=== PATIENT | female | born 2000 | race Caucasian/White ===

== ENCOUNTER 2024-10-19 03:48 | Emergency (ER) | payer OTHER, SELFPAY ==
[2024-10-19 03:53] VITALS: BP 141/83; PULSE 83; RESP 16; TEMP 36.7; O2SAT 98; BMI 37.1
--- NOTE | 2024-10-19 04:13 | ED.GENADULT ---
HPI - General Adult General Chief complaint: Extremity Pain/Injury, Upper Stated complaint: left elbow injury Time Seen by Provider: 10/19/24 04:00 Source: patient Mode of arrival: ambulatory Limitations: no limitations History of Present Illness HPI narrative: [age] female presents the emergency department for evaluation of elbow pain. Pain started 8 hours ago after she slipped on the ice. She worked a full shift and says that the pain started radiating down her forearm and also up her biceps area somewhat. She still has full function of the hand, can move the shoulder without difficulty can bend, straighten the elbow and has normal supination and pronation. She did not try taking any Tylenol or ibuprofen. There is a little bit of numbness in the ulnar distribution of the forearm area. No difficulty moving the fingers. 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 No prior musculoskeletal surgeries on the left arm, shoulder, wrist or hand but does have prior chronic rotator cuff strain on the left side. Is not currently enrolled in any physical therapy or treatment for this. Fall was mechanical, denies any syncope or medical symptoms preceding. No other areas of injury. Landed on bent the left elbow. Pain is at the medial epicondyle area. No bruising, broken skin or swelling. Related Data Home Medications ?Medication ?Instructions ?Recorded ?Confirmed No Known Home Medications 09/08/24 10/19/24 Allergies Allergy/AdvReac Type Severity Reaction Status Date / Time hydromorphone AdvReac Severe Vomiting Verified 10/19/24 03:55 [facility] Social History Smoking Status: Never smoker Non-prescribed substance use: denies use Exam Const: Vital Signs, click to edit/add: Vital Signs - 24 hr 10/19/24 03:53 Temperature 98.1 F Pulse Rate [Pulse Oximeter] 83 Respiratory Rate 16 Blood Pressure [Ri ght Upper Arm] 141/83 H Pulse Oximetry 98 Oxygen Delivery Me thod Room Air Documenting provider has reviewed patient's vital signs: yes Common normals: no apparent distress and alert General appearance: cooperative, comfortable and well kempt HENMT: Common normals: normocephalic Head and scalp: normocephalic Eye: Common normals: conjunctivae normal General eye: normal appearance of both eyes Conjunctiva: conjunctiva(e) normal Neck & C-Spine: General: normal visual inspection Resp: Common normals: normal respiratory effort Effort & inspection: able to speak in complete sentences Cardio: Common normals: peripheral pulses 2+ throughout Peripheral pulses: pulses 2+ throughout Extremity: Other: Left elbow has some mild tenderness over the medial epicondyle but no swelling, bruising, deformity or broken skin. No tenderness over the olecranon, lateral epicondyle, radial head or other areas of the elbow. She has complete full normal range of motion with no limitations. The wrist with normal range of motion, no deformity, no point bony tenderness. 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 Shoulder with normal range of motion, no weakness appreciated on the rotator cuff. No tenderness to palpation over the biceps origin but some very mild tenderness over the insertion at the elbow but certainly no weakness. Right wrist and hand appear grossly normal. Neuro: Sensorium/orientation: alert Speech: speech normal Motor exam: no movement abnormalities noted Psych: Common normals: speech normal Appearance: well kempt Activity/motor behavior: appropriate eye contact Speech: normal speech Mood and affect: euthymic mood Insight: insight good Judgement: judgment good Skin: Common normals: no rashes or lesions noted General skin exam: no rashes or lesions noted Course Course ED Course: 24-year-old female presenting with mild elbow sprain post fall. Offered x-ray but let patient know this since there is no significant tenderness over the radial head or other high yield areas, it is unlikely to change our management. She is in agreement. No signs of major injury in the wrist, shoulder or hand. Discussed anti-inflammatory medication. Prescription for Toradol given. Also counseled on [id number] Tylenol. Discussed a work note, she states that she does not need this. I would recommend [id number] exercises and avoid sling or splint to the elbow, rationale discussed. Primary care follow-up if not improving in 10-14 days. Written instructions provided. She verbalizes understanding and agreement. Vital Signs Vital signs: Initial Vital Signs Temperature 98.1 F 10/19/24 03:53 Temperature Source Temporal Artery Scan 10/19/24 03:53 Pulse Rate 83 10/19/24 03:53 Respiratory Rate 16 10/19/24 03:53 Blood Pressure 141/83 H 10/19/24 03:53 Blood Pressure Mean 102 10/19/24 03:53 Blood Pressure Position Sitting 10/19/24 03:53 Pulse Oximetry 98 10/19/24 03:53 Oxygen Delivery Method Room Air 10/19/24 03:53 Vital Signs Temperature 98.1 F 10/19/24 03:53 Pulse Rate 83 10/19/24 03:53 Respiratory Rate 16 10/19/24 03:53 Blood Pressure 141/83 H 10/19/24 03:53 Pulse Oximetry 98 10/19/24 03:53 Oxygen Delivery Method Room Air 10/19/24 03:53 Temperature 98.1 F 10/19/24 03:53 Pulse Rate 83 10/19/24 03:53 Respiratory Rate 16 10/19/24 03:53 Blood Pressure 141/83 H 10/19/24 03:53 Pulse Oximetry 98 10/19/24 03:53 Oxygen Delivery Method Room Air 10/19/24 03:53 Discharge Plan Discharge Clinical Impression: Elbow sprain Patient Disposition: Home, Self-Care Condition: Stable Instructions: Elbow Sprain (ED) Additional Instructions: As we discussed, your exam is consistent with an elbow sprain. There could be a tiny fracture but it is not affecting the overall structure of the elbow. We both agree that x-ray will not change our management. It is important not to brace or sling the elbow for these types of injuries. It is better to keep full range of motion. As we discussed I want you fully extending the arm at least every few hours while you are awake to keep the elbow from getting too stiff and rotating the hand back in forth with a flexed arm in that supination/pronation movement that was shown. He do have signs of some mild irritation of the ulnar nerve and bicep tendon that coursed through that area but no signs of a tear or major nerve injury. This should improve in about 3-5 days. If things are still very bothersome at the 2 week carmelo, I would recommend primary care follow-up appointment and referral to physical therapy. The shoulder does not show signs of a tear or complication but there are signs of some chronic inflammation. This will likely be slightly worse than usual from the fall but should improve gradually over the next couple of weeks. I would start doing my home exercise plan that you have been previously recommended for this after a couple days rest. I have given her prescription for Toradol, a common anti-inflammatory pain medication. Take 1 right away and then continue repeating every 6 hours as needed. You may also use Tylenol 1000 mg every 6 hours. You may apply ice or heat as needed. Neither tend to be overly helpful for this type of injury. You may perform all typical duties and activities at this time. Activity Level: No Restrictions Discharge Diet: Regular Prescriptions: No Action No Known Home Medications Follow Up/Referrals: Provider,Not a Local [Primary Care Provider] - Stand Alone Forms: [employer] Interactive Info Instructions
--- OUTSIDE RECORDS SUMMARY | 2024-10-19 04:18 | XMS_ITS | Clinical Summary ---
Author Organization [facility] Address [place], [place] [address] Care Team Providers Care Assembler Lay Ups Name Role Phone Kayla Diaz Primary Care Provider Allergies No known active allergies Medications Wegovy 0.25 mg/0.5 mL penIndications:M orbid obesity with BMI of 40.0-44.9, adult (HC) ADMINISTER 0.25MG(===0.5 ML) UNDER THE SKIN 1 TIME WEEKLY 2 mL 3 Active sertraline (ZOLOFT) 50 mg tabletIndication s:Anxiety,Mood swings Take 1 Tablet (50 mg) by mouth every morning. 90 Tablet 1 3 Active rizatriptan (MAXALT) 10 mg tabletIndication s:Other migraine without status migrainosus, not intractable Take 1 Tablet (10 mg) by mouth every 2 hours if needed for Migraine. Give at minimum 2hrs apart. Max Dose: 30mg per 24hrs. 12 Tablet 4 Active naproxen (NAPROSYN) 375 mg tabletIndication s:Other migraine without status migrainosus, not intractable Take 1 Tablet (375 mg) by mouth every 12 hours if needed for Headache. 30 Tablet 4 Active Active Problems Problem Noted Date Diagnosed Date Pneumonia, organism unspecified(486) 08/27/2010 Immunizations Name Administration Dates Next Due DTaP 02/21/2005, 1,2000,05/16,2000 HIB HbOC (HibTITER) 2000,2000 HIB-HepB (Comvax) 04/23/2001,2000 Hepatitis B (Peds) 2000 Inactivated Polio Vaccine 02/21/2005,,04/23/2001,07/28,2000 MENINGOCOCCAL VACCINE 2 VIAL 2MO-55YO (MENVEO) 09/15/2017 MMR 02/21/2005,02/17/2001 Pneumococcal conj 7-Valent (Prevnar 7) 7 Tdap 03/04/2012 Varicella Vaccine 02/17/2007,02/17/2001 Social History Tobacco Use Types Packs/Day Years Used Date Smoking Tobacco: Never Smokeless Tobacco: Never Tobacco Cessation:Counseling Given: Yes Alcohol Use Standard Drinks/Week Comments Yes 0 (1 standard drink = 0.6 oz pur e alcohol) Occ PHQ-2 Answer Date Recorded PHQ-2 TOTAL SCORE 2 07/03/2023 Social Connections Answer Date Recorded Do you often feel lonely or isolated from those around you? 0 07/02/2024 Financial Resource Strain Answer Date R ecorded Difficulty of Paying Living Expenses 3 07/02/2024 Difficulty of Paying Living Expenses Not on file 07/02/2024 Food Insecurity Answer Date Recorded Do you worry your food will run out before you are able to buy more? 1 07/02/2024 Transportation Needs Answer Date Record ed Does lack of transportation keep you from medica l appointments? 1 07/02/2024 Does lack of transportation keep you from work, meetings or getting things that you need? 1 07/02/2024 Housing Stability Answer Date Recorded What is your housing situation today? 1 07/02/2024 Comments No Sex and Gender Information Value Date Recorded Sex Assigned at Female 04/18/2021 3:14 AM CDT Legal Sex Female 5:41 AM PASSENGER CONDUCTOR Gender Identity Female 04/18/2021 3:14 AM CDT Sexual Orientation Bisexual 04/18/2021 3: 14 AM CDT Occupation Industry Job Start Date Job End Date student Not on file Not on file Not on file Obstetrics History Last Filed Vital Signs Vital Sign Reading Time Taken Comments Blood Pressure 106/70 07/02/2024 2:43 PM CDT Pulse 50 07/02/2024 2:43 PM CDT Temperature 36.8 C (98.3 F) 09/15/2017 3:18 PM PASSENGER CONDUCTOR Respiratory Rate - - Oxygen Saturation 99% 07/02/2024 2:43 PM CDT Inhaled Oxygen Concentration - - Weight 107 kg (236 lb) 07/02/2024 2:43 PM CDT Height 165.1 cm (5' 5) 04/03/2023 3:13 PM CDT Body Mass Index 39.27 04/03/2023 3:13 PM CDT Plan of Treatment Health Maintenance Due Date Last Done Comments HPV series for age 9-26 (2 - 2-dose series) 09/03/2012 03/04/2012 (Declined) HIV for age 15-65 01/21/2015 Chlamydia for age 16-24 2016 Hepatitis C screening for age 18-79 01/21/2018 Tetanus booster 03/04/2022 03/04/2012 BMI (ht and wt on same day) for age 18+ 04/03/2024 04/03/2023, 01/10/2023, 02/13/2022, Additional history exists Depression screening for age 12+ 07/03/2024 07/03/2023, 04/05/2023, 04/03/2023, Additional history exists COVID-19 vaccine series ( season) 2024 Influenza for age 9-49 07/11/2024 Pap test for age 21-65 08/22/2024 08/22/2021 Pneumococcal series for age 6-64 Aged Out 02/17/2007 No longer eligible based on patient's age to complete this topic Tdap Completed 03/04/2012 Procedures Procedure Name Priority Date/Time Associated Diagnosis Comments 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 Received: 08/22/2021 1329 Clinic First Screen: Andie Muniz Specimen: DECK AND HULL ASSEMBLER ThinPrep Vial Screening, Cervical 09/06/2021 7:45 PM CDT [facility] [employer] [facility] INTERPRETATION/ RESULT NEGATIVE FOR INTRAEPITHELIAL LESION OR MALIGNANCY (NIL) (none) 09/06/2021 7:45 PM CDT [facility] IMEN ADEQUACY Satisfactory for evaluation Endocervical component present 09/06/2021 7:45 PM CDT [facility] [employer] [facility] HPV REQUEST HPV if ASCUS 09/06/2021 7:45 PM CDT [facility] [employer] [facility] Date of LMP 08/14/21 09/06/2021 7:45 PM CDT [facility] Last Pap Date 1st pap 09/06/2021 7:45 PM CDT [facility] Last Pap Result First Pap/Unknown 7:45 PM CDT [facility] Abnormal Pap or [place] Bx in last 5 years No 09/06/2021 7:45 PM CDT [facility] Menstrual Status Regular Periods 09/06/2021 7:45 PM CDT [facility] [place] Bx Done Today No 09/06/2021 7:45 PM CDT [facility] Additional Information None given 09/06/2021 7:45 PM CDT [facility] Comment: Cytology is screened at [facility] - [address], [place] [address] and [facility] - [address] [place] [address] and [facility] - [address] [place] [address] Interpreted at [facility] - [address], [place] [address] Automated Review Successful 09/06/2021 7:45 PM CDT [facility] Comment:Specimen processed s uccessfully by automated lead sewage plant operator device, ThinPrep Imaging System, [employer] Note The pap test is a screening technique, not a diagnostic procedure. It is used primarily to screen for squamous cancers and precursor lesions. Published studies have shown that it is subject to both false negative and false positive results. The pap test should not be used as the sole means to diagnose or exclude pre-malignant and malignant lesions. 09/06/2021 7:45 PM CDT [facility] Other (Cervical) Non-Blood / Unknown 08/22/2021 12:07 PM CDT 08/22/2021 1:29 PM CDT us Kayla MALDONADO PATHOLOGY/CYTOLOGY Kylah rodríguez Result [facility] [address] [place] [address], [place] from Last 3 Months or Most Recently Relevant to Health Maintenance Insurance Care Teams Assembler Lay Ups Relationship Specialty Start Date End Date Kayla Diaz PA [address] [place] [address] PCP - General Physician [employer] 11/12/21
== END 2024-10-19 04:25 | disposition home or self-care (01) ==
LOC: ED 04:16
PROVIDERS: Emergency Provider Family Medicine; PCP Physician Assistant Medical
DX: S53.402A Unspecified sprain of left elbow, initial encounter (principal)
CPT/HCPCS: 99282; 99283

== ENCOUNTER 2024-11-25 22:41 | Emergency (ER) | payer OTHER, SELFPAY ==
--- OUTSIDE RECORDS SUMMARY | 2024-11-25 22:44 | XMS_ITS | Clinical Summary ---
Author Organization [facility] Address [place], [place] [address] Care Team Providers Care Control Tower Radio Operator Name Role Phone Kayla Diaz Primary Care [...] is your housing situation today? 1 07/02/2024 Utilities Answer Date Recorded Do you have trouble paying f or utilities (for example, heat, electricity, water, phone)? 1 07/02/2024 Comments No Sex and Gender Information Value Date Recorded Sex Assigned at Female 04/18/2021 3:14 AM CDT Legal Sex Female 5:41 AM BLOCK MAKING MACHINE OPERATOR Gender Identity Female 04/18/2021 3:14 AM CDT [...] 36.8 C (98.3 F) 09/15/2017 3:18 PM BLOCK MAKING MACHINE OPERATOR Respiratory Rate - - Oxygen Saturation 99% 07/02/2024 2:43 PM CDT Inhaled Oxygen Concentration - - Weight 107 kg (236 lb) 07/02/2024 2:43 PM CDT Height 165.1 cm (5' 5) 04/03/2023 3:13 PM CDT Body Mass Index 39.27 04/03/2023 3:13 PM CDT Plan of Treatment Upcoming Encounters Date Type Department Care Team (Late st Contact Info) Description 12/10/2024 1:20 PM BLOCK MAKING MACHINE OPERATOR Office Visit [facility] [address] [place] [address] Kayla Diaz PA [address] [place] [address] Health Maintenance Due Date Last Done Comments [...] 21-65 08/22/2024 08/22/2021 Pneumococcal series for age 6-49 Aged Out 02/17/2007 No longer eligible based on patient's age to complete this topic Tdap Completed 03/04/2012 Procedures Procedure Name Priority Date/Time Associated Diagnosis Comments ASSEMBLER CONVERTIBLE TOP THIN PREP PAP SCREEN IMAGED Routine 08/22/2021 12:07 PM CDT Screening for cervical cancer from Last 3 Months or Most Recently Relevant to Health Maintenance Results * ASSEMBLER CONVERTIBLE TOP THIN PREP PAP SCREEN IMAGED [[id number]] (08/22/2021 12:07 PM CDT) Case Report Gynecologic Cytology Report Case: [id number] Authorizing Provider: Kayla Diaz PA Collected: 08/22/2021 1207 Ordering Location: [facility] Received: 08/22/2021 1329 Clinic First Screen: Andie Muniz Specimen: ASSEMBLER CONVERTIBLE TOP ThinPrep Vial Screening, Cervical 09/06/2021 7:45 PM CDT [facility] INTERPRETATION/ RESULT NEGATIVE FOR INTRAEPITHELIAL LESION OR MALIGNANCY (NIL) (none) 09/06/2021 7:45 PM CDT [facility] IMEN ADEQUACY Satisfactory for evaluation Endocervical component present 09/06/2021 7:45 PM CDT [facility] HPV REQUEST HPV if ASCUS 09/06/2021 7:45 PM CDT [facility] Date of LMP 08/14/21 09/06/2021 7:45 PM CDT [facility] Last Pap Date 1st pap 09/06/2021 7:45 PM CDT [facility] Last Pap Result First Pap/Unknown 7:45 PM CDT [facility] Abnormal Pap or [place] Bx in last 5 years No 09/06/2021 7:45 PM CDT [facility] Menstrual Status Regular Periods 09/06/2021 7:45 PM CDT [facility] [place] Bx Done Today No 09/06/2021 7:45 PM CDT [facility] Additional Information None given 09/06/2021 7:45 PM CDT [facility] Comment: Cytology is screened at [facility] - [address], [place] [address] and [facility] - [address] [place] [address] [place] [address] and [facility] - [address] [place] [address] Interpreted at [facility], [facility] Laboratory - [address], [place] [address] Automated Review Successful 09/06/2021 7:45 PM CDT [facility]- ENTRAL LABORATORY Comment:Specimen processed s uccessfully by automated color drum worker device, ThinPrep Imaging System, [employer] Note The pap test is a [...] and malignant lesions. 09/06/2021 7:45 PM CDT [facility] Other (Cervical) Non-Blood / Unknown 08/22/2021 12:07 PM CDT 08/22/2021 1:29 PM CDT Kayla MALDONADO PATHOLOGY/CYTOLOGY Kylah rodríguez Result [facility] [address] [place] [address], [place] from Last 3 Months or Most Recently Relevant to Health Maintenance [facility] [id number] [facility] [id number] [place] [id number] Care Teams Control Tower Radio Operator Relationship Specialty Start Date End Date Kayla Diaz PA [address] [place] [address] PCP - General Physician Negative Turner Apprentice 11/12/21
[2024-11-25 23:11] VITALS: BP 115/71; RESP 16; TEMP 36.5; O2SAT 97; BMI 37.1
--- NOTE | 2024-11-26 00:23 | CRLHL7_ITS ---
For Patients: As a result of the Century Cures Act, medical imaging exams and procedure reports are released immediately into your electronic medical record. You may view this report before your referring provider. If you have questions, please contact your health care provider. INDICATION: Inhaled freon. TECHNIQUE: Chest 2 views. COMPARISON: None. FINDINGS: Cardiovascular and mediastinum: Heart size is normal. Unremarkable mediastinum. Lungs and pleural spaces: Lungs are clear. No sign of infiltrate or mass. No sign of pleural effusion. No pneumothorax. Bones and soft tissues: No significant findings. IMPRESSION: No acute cardiopulmonary abnormality. Dictated by Dinesh Blanca MD @ 11/26/2024 12:59:52 AM (Electronically Signed)
--- OUTSIDE RECORDS SUMMARY | 2024-11-26 00:44 | XMS_ITS | Clinical Summary ---
Author Organization [facility] Address [place], [place] [address] Care Team Providers Care Emergency Manager Name Role Phone Kayla Diaz Primary Care [...] AM CDT Legal Sex Female 5:41 AM ERECTING CRANE OPERATOR Gender Identity Female 04/18/2021 3:14 AM [...] 36.8 C (98.3 F) 09/15/2017 3:18 PM ERECTING CRANE OPERATOR Respiratory Rate - - Oxygen Saturation 99% 07/02/2024 2:43 PM CDT Inhaled Oxygen Concentration - - Weight 107 kg (236 lb) 07/02/2024 2:43 PM CDT Height 165.1 cm (5' 5) 04/03/2023 3:13 PM CDT Body Mass Index 39.27 04/03/2023 3:13 PM CDT Plan of Treatment Upcoming Encounters Date Type Department Care Team (Late st Contact Info) Description 12/10/2024 1:20 PM ERECTING CRANE OPERATOR Office Visit [facility] [address] [place] [address] Kayla Diaz PA [address] [place] [address] Health Maintenance Due Date Last Done Comments [...] Procedure Name Priority Date/Time Associated Diagnosis Comments WATER SOFTENER SERVICE SUPERVISOR THIN PREP PAP SCREEN IMAGED Routine 08/22/2021 12:07 PM CDT Screening for cervical cancer from Last 3 Months or Most Recently Relevant to Health Maintenance Results * WATER SOFTENER SERVICE SUPERVISOR THIN PREP PAP SCREEN IMAGED [[id number]] (08/22/2021 12:07 PM CDT) Case Report Gynecologic Cytology Report Case: [id number] Authorizing Provider: Kayla Diaz PA Collected: 08/22/2021 1207 Ordering Location: [facility] Received: 08/22/2021 1329 Clinic First Screen: Andie Muniz Specimen: WATER SOFTENER SERVICE SUPERVISOR ThinPrep Vial Screening, Cervical 09/06/2021 7:45 PM CDT [facility]- [facility]AL [facility] INTERPRETATION/ RESULT NEGATIVE FOR INTRAEPITHELIAL LESION OR MALIGNANCY (NIL) (none) 09/06/2021 7:45 PM CDT [facility] IMEN ADEQUACY Satisfactory for evaluation Endocervical component present 09/06/2021 7:45 PM CDT [facility] HPV REQUEST HPV if ASCUS 09/06/2021 7:45 PM CDT [facility] Date of LMP 08/14/21 09/06/2021 7:45 PM CDT [facility] Last Pap Date 1st pap 09/06/2021 7:45 PM CDT [facility] Last Pap Result First Pap/Unknown 7:45 PM CDT [facility] Abnormal Pap or Roberts Bx in last 5 years No 09/06/2021 7:45 PM CDT [facility] Menstrual Status Regular Periods 09/06/2021 7:45 PM CDT [facility] Roberts Bx Done Today No 09/06/2021 7:45 PM CDT [facility] Additional Information None given 09/06/2021 7:45 PM CDT [facility] Comment: Cytology is screened at [facility], [facility] Laboratory - [address], [place] [address] and [facility] - [address] [place] [address], [place] [address] and [facility] - [address] [place] [address] Interpreted at [facility], Central Laboratory - [address], [place] [address] Automated Review Successful 09/06/2021 7:45 PM CDT [facility]- ENTRAL LABORATORY Comment:Specimen processed s uccessfully by automated diet therapist device, ThinPrep Imaging System, [employer] Note The pap test is a [...] and malignant lesions. 09/06/2021 7:45 PM CDT [facility]- ENTRLA LABORATORY Other (Cervical) Non-Blood / Unknown 08/22/2021 12:07 PM CDT 08/22/2021 1:29 PM CDT Kayla MALDONADO PATHOLOGY/CYTOLOGY Kylah rodríguez Result [facility] [address] [place] [address], [place] from Last 3 Months or Most Recently Relevant to Health Maintenance Insurance [id number] [facility] [id number] [place] [id number] Care Teams Emergency Manager Relationship Specialty Start Date End Date Kayla Diaz PA [address] [place] [address] PCP - General Physician Pest Management Supervisor 11/12/21
--- NOTE | 2024-11-26 02:38 | ED_ITS ---
HPI - General Adult General Date Seen: 11/26/24 Chief complaint: Shortness of Breath/Dyspnea Stated complaint: Inhaled refrigerant at work, trouble breathing Time Seen by Provider: 11/26/24 00:10 Source: patient and family Mode of arrival: ambulatory Limitations: no limitations History of Present Illness HPI narrative: Patient is a 24-year-old female who was at work at [employer] today. 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 A few minutes later a 2nd burst of freon occurred and she believes that she inhaled some of the chemical. She has felt like it is difficult to take a deep breath in that she is a little short of breath. No cough, chest pain, nausea, vomiting. No history of asthma or smoking. Related Data Home Medications ?Medication ?Instructions ?Recorded ?Confirmed No Known Home Medications 09/08/24 10/19/24 Allergies Allergy/AdvReac Type Severity Reaction Status Date / Time hydromorphone AdvReac Severe Vomiting Verified 11/25/24 23:13 Review of Systems Narrative: Review of systems is outlined above otherwise noted to be negative. PFSH [facility] Social History Smoking Status: Never smoker Non-prescribed substance use: denies use Exam Narrative: Exam Narrative: Vitals noted. HEENT: Conjunctiva clear. Tympanic membranes are pearly white bilaterally. Posterior pharynx is clear without erythema or exudate. Neck is supple without adenopathy. Lungs: Clear to auscultation in all hernandez. No wheezes, rales, rhonchi. Heart: Regular rate and rhythm without murmur. Abdomen: Soft and nontender. No guarding, rigidity, rebound. Bowel sounds are normal. No palpable masses. Extremities: No cyanosis or edema. Good distal pulses. Skin: No abnormalities noted of the exposed skin. Neurologic: Awake, alert, fully oriented. Neurologic exam is nonfocal. Const: Vital Signs, click to edit/add: Vital Signs - 24 hr 11/25/24 23:11 Temperature 97.7 F Respiratory Rate 16 Blood Pressure [Ri ght Upper Arm] 115/71 Pulse Oximetry 97 Oxygen Delivery Me thod Room Air Course Course ED Course: Patient seen and examined. Chest x-ray is unremarkable. She was not hypoxic. Her lungs are clear. She is reassured. Vital Signs Vital signs: Initial Vital Signs Temperature 97.7 F 11/25/24 23:11 Temperature Source Temporal Artery Scan 11/25/24 23:11 Respiratory Rate 16 11/25/24 23:11 Respiratory Effort Normal 11/25/24 23:11 Respiratory Depth Normal 11/25/24 23:11 Respiratory Pattern Normal 11/25/24 23:11 Blood Pressure 115/71 11/25/24 23:11 Blood Pressure Mean 85 11/25/24 23:11 Blood Pressure Position Sitting 11/25/24 23:11 Pulse Oximetry 97 11/25/24 23:11 Oxygen Delivery Method Room Air 11/25/24 23:11 Vital Signs Temperature 97.7 F 11/25/24 23:11 Respiratory Rate 16 11/25/24 23:11 Blood Pressure 115/71 11/25/24 23:11 Pulse Oximetry 97 11/25/24 23:11 Oxygen Delivery Method Room Air 11/25/24 23:11 Temperature 97.7 F 11/25/24 23:11 Respiratory Rate 16 11/25/24 23:11 Blood Pressure 115/71 11/25/24 23:11 Pulse Oximetry 97 11/25/24 23:11 Oxygen Delivery Method Room Air 11/25/24 23:11 Discharge Plan Discharge Clinical Impression: Exposure to chemical inhalation Patient Disposition: Home, Self-Care Condition: Stable Additional Instructions: Rest. No work x 3 days. Push fluids. Follow up in clinic if no better in 3 days. Tylenol or Ibuprofen for pain. Return to ED for worsening SOB. Activity Level: No Restrictions Discharge Diet: Regular Prescriptions: No Action No Known Home Medications Follow Up/Referrals: Kayla Diaz PA-C [Primary Care Provider] - Stand Alone [facility]: [facility] Inst[facility]
== END 2024-11-26 01:21 | disposition home or self-care (01) ==
PROVIDERS: Emergency Provider Family Medicine; PCP Physician Assistant Medical
DX: T53.5X1A Toxic effect of chlorofluorocarbons, accidental (unintentional), initial encounter (principal); J68.8 Other respiratory conditions due to chemicals, gases, fumes and vapors
CPT/HCPCS: 71046; 99282; 99283

== ENCOUNTER 2024-12-01 22:45 | Emergency (ER) | payer OTHER, SELFPAY ==
[2024-12-01 22:53] VITALS: BP 146/85; PULSE 107; RESP 18; TEMP 36.7; O2SAT 98; BMI 37.1
[2024-12-01] MEDS: MECLIZINE HCL 25 MG TABLET PO (23:56)
--- OUTSIDE RECORDS SUMMARY | 2024-12-01 23:57 | XMS_ITS | Clinical Summary ---
Author Organization [facility] Address [place], [place] [address] Care Team Providers Care Owner/Photographer Name Role Phone Kayla Diaz Primary Care [...] Date Diagnosed Date Pneumonia, organism unspecified(486) 08/27/2010 Encounters Date Type Department Care Team Description 12/01/2024 Nurse Triage [facility] [address] [place] [address] Kayla Diaz PA Chest Pain 11/26/2024 Orders Only [facility] Scanner 1 scan: (1-Ord) [facility], XR CHEST 2V, 11/26/2024 from Last 3 Months Immunizations Name Administration Dates Next Due DTaP [...] AM CDT Legal 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 Gender Identity Female 04/18/2021 3:14 AM CDT [...] 36.8 C (98.3 F) 09/15/2017 3:18 PM 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 Respiratory Rate - - Oxygen Saturation 99% 07/02/2024 2:43 PM CDT Inhaled Oxygen Concentration - - Weight 107 kg (236 lb) 07/02/2024 2:43 PM CDT Height 165.1 cm (5' 5) 04/03/2023 3:13 PM CDT Body Mass Index 39.27 04/03/2023 3:13 PM CDT Plan of Treatment Upcoming Encounters Date Type Department Care Team (Late st Contact Info) Description 12/10/2024 1:20 PM 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 Office Visit [facility] [address] [place] [address] Kayla Diaz PA [address] [place] [address] Health Maintenance Due Date Last Done Comments [...] 04/03/2023, Additional history exists COVID-19 vaccine series (2023- season) 2024 Influenza for age 9-49 07/11/2024 Pap test for age 21-65 08/22/2024 08/22/2021 Pneumococcal series for age 6-49 Aged Out 02/17/2007 No longer eligible based on patient's age to complete this topic Tdap Completed 03/04/2012 Procedures Procedure Name Priority Date/Time Associated Diagnosis Comments SCAN-RADIOLOGY REPORT 11/26/2024 12:00 AM 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 FEDERAL LAW CLERK THIN PREP PAP SCREEN IMAGED Routine 08/22/2021 12:07 PM CDT Screening for cervical cancer from Last 3 Months or Most Recently Relevant to Health Maintenance Results * SCAN-RADIOLOGY REPORT (11/26/2024 12:00 AM 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) Anatomical Region Laterality Modality Other us Scanner OTHER Final Result * FEDERAL LAW CLERK THIN PREP PAP SCREEN IMAGED [[id number]] (08/22/2021 12:07 PM CDT) Case Report Gynecologic Cytology Report Case: [id number] Authorizing Provider: Kayla Diaz PA Collected: 08/22/2021 1207 Ordering Location: [facility] Received: 08/22/2021 1329 Clinic First Screen: Andie Muniz Specimen: FEDERAL LAW CLERK ThinPrep Vial Screening, Cervical 09/06/2021 7:45 PM [facility]T [facility] INTERPRETATION/ RESULT NEGATIVE FOR INTRAEPITHELIAL LESION OR MALIGNANCY (NIL) (none) 09/06/2021 7:45 PM CDT [facility] ENTRAL LABORAT[facility] IMEN ADEQUACY Satisfactory for evaluation Endocervical component present 09/06/2021 7:45 PM CDT [facility] ENTRAL LAB[facility] HPV REQUEST HPV if ASCUS 09/06/2021 7:45 PM CDT [facility] Date of LMP 08/14/21 09/06/2021 7:45 PM CDT [facility] ENTRAL LABORATORY Last Pap Date 1st pap 09/06/2021 7:45 PM CDT [facility] Last Pap Result First Pap/Unknown 7:45 PM CDT [facility] Abnormal Pap or Polson Bx in last 5 years No 09/06/2021 7:45 PM CDT [facility] Menstrual Status Regular Periods 09/06/2021 7:45 PM CDT [facility] Polson Bx Done Today No 09/06/2021 7:45 PM CDT [facility] Additional Information None given 09/06/2021 7:45 PM CDT [facility] Comment: Cytology is screened at [facility] - [address], [place] [address] and [facility] - [address], [place] [address] and [facility] - [address] [place] [address] Interpreted at [facility] - [address], [place] [address] Automated Review Successful 09/06/2021 7:45 PM CDT [facility] Comment:Specimen processed s uccessfully by automated engraver ornamental design device, ThinPrep Imaging System, [email or web address] Note The pap test is a [...] and malignant lesions. 09/06/2021 7:45 PM CDT [facility] Other (Cervical) Non-Blood / Unknown 08/22/2021 12:07 PM CDT 08/22/2021 1:29 PM CDT us Kayla MALDONADO PATHOLOGY/CYTOLOGY Kylah rodríguez Result [facility] [address] [place] [address], [place] from Last 3 Months or Most Recently Relevant to Health Maintenance Insurance [place] [id number] Care Teams Owner/Photographer Relationship Specialty Start Date End Date Kayla Diaz [place] [address] PCP - General Physician Block Cuber 11/12/21
[2024-12-01 23:58] LABS: Basophils Absolute Auto 0.02 K/uL (0.00-0.30); Basophils Percent Auto 0.2 % (0.0-3.0); Eosinophils Absolute Auto 0.19 K/uL (0.00-0.50); Eosinophils Percent Auto 2.4 % (0.0-7.0); Hematocrit 41.3 % (33.0-51.0); Hemoglobin* 13.6 gm/dL (12.0-16.0); Immature Granulocytes Abs Auto 0.02 K/uL (0.00-0.30); Immature Granulocytes Pct Auto 0.2 %; Lymphocytes Absolute Auto 2.72 K/uL (0.90-2.90); Lymphocytes Percent Auto 33.8 % (20-44); Mean Corpuscular HGB Conc 33 gm/dL (32-36); Mean Corpuscular Hemoglobin 29 pg (26-34); Mean Corpuscular Volume 87 fL (80-100); Monocytes Percent Auto 6.8 % (0.0-11.0); Neutrophils Absolute Auto 4.55 K/uL (1.7-7.0); Neutrophils Percent Auto 56.6 % (42.0-72.0); Platelet Count* 243 K/uL (140-440); RDW Coefficient of Variation % 12.8 % (11.5-15.5); Red Blood Count 4.74 m/uL (4.00-5.20); White Blood Count* 8.05 K/uL (4.50-11.00)
--- NOTE | 2024-12-02 | CRLHL7_ITS ---
For Patients: As a result of the Century Cures Act, medical imaging exams and procedure reports are released immediately into your electronic medical record. You may view this report before your referring provider. If you have questions, please contact your health care provider. INDICATION: Chest pain. TECHNIQUE: Chest 2 views. COMPARISON: 11/26/2024. FINDINGS: Cardiovascular and mediastinum: Heart size and vasculature are normal in caliber and appearance. Lungs and pleural spaces: No focal consolidation, pleural effusion, or pneumothorax. Bones and soft tissues: Unremarkable for age. IMPRESSION: No evidence of an acute pulmonary process. Dictated by Roel Martinez MD @ 12/02/2024 12:21:44 AM (Electronically Signed)
[2024-12-02 00:03] LABS: Slide Review Reflex No
[2024-12-02 00:06] LABS: Troponin, Point-of-Care* 0.01 ng/ml (0.01-0.04)
--- NOTE | 2024-12-02 00:09 | ED.GENADULT ---
HPI - General Adult General Date Seen: 12/02/24 Chief complaint: Unspecified Complaint, Adult Stated complaint: refrigerant inhalation/worse since 11/26/24 Time Seen by Provider: 12/01/24 23:20 Source: patient Mode of arrival: ambulatory Limitations: no limitations History of Present Illness HPI narrative: Patient is a 24-year-old female presenting to the emergency department for dizziness, chest pressure and ability to lie flat when sleeping. She was seen here emergency department few days ago for accidental inhalation of some Freon. She comes in today because she feels like she isn't getting better. States her breathing does not seem like it is normal is and will feel like her vision is blurry. Left eye worse than right. States she feels like the room is occasionally spinning and she is feels off balance. Symptoms are worse when she is moving. Is also concerned because she now can not lay flat when she sleeping and has to lay and recline a. Has not had symptoms like this before. Denies fevers, chills, headache, abdominal pain, diarrhea, constipation. No history of blood clots. No other concerns noted. Is not currently dizzy at rest. Related Data Previous Rx's ?Medication ?Instructions ?Recorded meclizine 25 mg tablet 25 mg PO QID #20 tabs 12/02/24 Allergies Allergy/AdvReac Type Severity Reaction Status Date / Time hydromorphone AdvReac Severe Vomiting Verified 11/25/24 23:13 Review of Systems Status of ROS: Reports: 10 or more systems reviewed and unremarkable except as noted in History and below PFS PFS Social History Smoking Status: Never smoker Non-prescribed substance use: denies use Exam Narrative: Exam Narrative: Const: Well-nourished, Well-developed, in no distress Eyes: PERRL, no conjunctival injection, and symmetrical lids HENT: Atraumatic external nose and ears. Moist mucous membranes. Neck: Symmetric, trachea midline, No thyromegaly. CVS: RRR, No murmurs or gallops. Peripheral pulses 2+ and equal in all extremities RESP: Unlabored respiratory effort. Clear to auscultation bilaterally. GI: Nontender/Nondistended, No rebound or guarding. MSK:Extremities w/o deformity, Normal Active ROM Skin: Warm, Dry. No rashes or lesions. Neuro: Normal Muscle tone, No focal neurological deficits. Psych: Awake, Alert, & Oriented x3. Appropriate mood and affect. Const: Vital Signs, click to edit/add: Vital Signs - 24 hr 12/01/24 22:53 Temperature 98.1 F Pulse Rate [Left P ulse Oximeter] 107 H Respiratory Rate 18 Blood Pressure [Ri ght Upper Arm] 146/85 H Pulse Oximetry 98 Oxygen Delivery Me thod Room Air Course Vital Signs Vital signs: Initial Vital Signs Temperature 98.1 F 12/01/24 22:53 Temperature Source Oral 12/01/24 22:53 Pulse Rate 107 H 12/01/24 22:53 Pulse Rhythm Regular 12/01/24 22:53 Respiratory Rate 18 12/01/24 22:53 Blood Pressure 146/85 H 12/01/24 22:53 Blood Pressure Mean 105 12/01/24 22:53 Blood Pressure Position Sitting 12/01/24 22:53 Pulse Oximetry 98 12/01/24 22:53 Oxygen Delivery Method Room Air 12/01/24 22:53 Vital Signs Temperature 98.1 F 12/01/24 22:53 Pulse Rate 107 H 12/01/24 22:53 Respiratory Rate 18 12/01/24 22:53 Blood Pressure 146/85 H 12/01/24 22:53 Pulse Oximetry 98 12/01/24 22:53 Oxygen Delivery Method Room Air 12/01/24 22:53 Temperature 98.1 F 12/01/24 22:53 Pulse Rate 107 H 12/01/24 22:53 Respiratory Rate 18 12/01/24 22:53 Blood Pressure 146/85 H 12/01/24 22:53 Pulse Oximetry 98 12/01/24 22:53 Oxygen Delivery Method Room Air 12/01/24 22:53 Medications Administered Medications: Discontinued Medications Generic Name Dose Route Start Last Admin Trade Name Freq PRN Reason Stop Dose Admin Meclizine HCl 25 mg 12/01/24 23:20 12/01/24 23:56 Meclizine Hcl 25 Mg Tablet PO 12/01/24 23:21 25 mg ONCE ONE Administration Medical Decision Making MDM Narrative Medical decision making narrative: Patient is a 24-year-old female presenting to emergency department for multiple complaints. The differential diagnosis of chest pain is broad and includes common etiologies such as musculoskeletal strain, GERD, pneumonia, etc. More serious etiologies considered include PE, coronary artery disease, pneumothorax, aortic dissection, aortic aneurysm. Will do an EKG and troponin to the for signs of cardiac involvement. Will do a D-dimer for possible signs of blood clots as she is short of breath and tachycardic with this. Lung sounded clear. Will do a chest x-ray to look for signs of pneumonia or pneumothorax. She denies any cough or rhinorrhea and states she does not think this is infection related. Her dizziness is worse when she looks to the left specifically in this makes be inclined to believe she is having vertigo. Do not believe head imaging is necessary. Will give her meclizine. We will also do a visual acuity test. CBC, BMP ordered. Patient's chest x-ray reviewed by myself and the radiologist shows no acute concerning abnormalities. EKG shows no concerning findings. Lab work also shows no concerning abnormalities and visual QT showed no concerning findings. Troponin within normal limits and I do not believe repeat troponin is necessary considering how long symptoms have been going on for. She is feeling slightly better with meclizine I do believe her dizziness is from BPPV. At this point I do believe she is safe for discharge and will be prescribed meclizine. She is agreeable to this plan Lab Data Labs: Lab Results 12/01/24 12/01/24 Range/Units 23:20 23:21 WBC 8.05 (4.50-11.00) K/uL RBC 4.74 (4.00-5.20) m/uL Hgb 13.6 (12.0-16.0) gm/dL Hct 41.3 (33.0-51.0) % MCV 87 (80-100) fL MCH 29 (26-34) pg MCHC 33 (32-36) gm/dL RDW Coeff of Jethro 12.8 (11.5-15.5) % Plt Count 243 (140-440) K/uL Neut % (Auto) 56.6 (42.0-72.0) % Lymph % (Auto) 33.8 (20-44) % [place] % (Auto) 6.8 (0.0-11.0) % Eos % (Auto) 2.4 (0.0-7.0) % Baso % (Auto) 0.2 (0.0-3.0) % Neut # (Auto) 4.55 (1.7-7.0) K/uL Lymph # (Auto) 2.72 (0.90-2.90) K/uL [place] # (Auto) 0.50 (0.00-0.90) K/UL Eos # (Auto) 0.19 (0.00-0.50) K/uL Baso # (Auto) 0.02 (0.00-0.30) K/uL Abs Immat Gran (auto) 0.02 (0.00-0.30) K/uL Imm/Tot Granulo (auto) 0.2 % D-Dimer Quant (PE/DVT) 0.17 (0.00-0.50) ug/ml Sodium 139 (135-149) mmol/L Potassium 4.0 (3.6-5.1) mmol/L Chloride 106 (96-114) mmol/L Carbon Dioxide 26 (20-32) mmol/L Anion Gap 7 (7-15) mEq/L BUN 14 (5-24) mg/dL Creatinine 0.5 (0.5-1.5) mg/dL Estimated Creat Clear 162.42 Estimated GFR 134 ml/min Glucose 85 (60-115) mg/dL Calcium 8.8 (8.4-10.6) mg/dL POC Troponin I 0.01 (0.01-0.04) ng/ml Imaging Data Chest x-ray: Attestation: I have reviewed the pertinent imaging results. Radiologist's impression: No evidence of an acute pulmonary process. Dictated by Roel Martinez MD @ 12/02/2024 12:21:44 AM ECG Data Attestation: I personally reviewed and interpreted this ECG as follows: Prior ECG tracings: not available for review Interpretation: Normal sinus rhythm with a rate of 64 beats per minute, normal intervals, normal axis, no ST or T-wave abnormalities. Discharge Plan Discharge Clinical Impression: Atypical chest pain Benign paroxysmal positional vertigo Qualifiers: Laterality: unspecified laterality Qualified Code(s): H81.10 - Benign paroxysmal vertigo, unspecified ear Patient Disposition: Home, Self-Care Condition: Stable Instructions: Benign Paroxysmal Positional Vertigo (ED) Additional Instructions: I believe the dizziness is from benign paroxysmal positional vertigo. Take meclizine for your symptoms. We do not see any abnormalities on the rest of the workup to explain your chest pain. If symptoms persist follow-up with your primary care provider. Prescriptions: New meclizine 25 mg tablet 25 mg PO QID Qty: 20 0RF Follow Up/Referrals: Kayla Diaz PA-C [Primary Care Provider] - Stand Alone Forms: [employer] Info Instructions
[2024-12-02 00:17] LABS: Chloride* 106 mmol/L (96-114); Sodium* 139 mmol/L (135-149)
[2024-12-02 00:20] LABS: Anion Gap 7 mEq/L (7-15); Blood Urea Nitrogen* 14 mg/dL (5-24); Carbon Dioxide* 26 mmol/L (20-32); Creatinine* 0.5 mg/dL (0.5-1.5); Est. Creatinine Clearance* 162.42; Estimated Glomerular Filt Rate 134 ml/min
[2024-12-02 00:21] LABS: Calcium* 8.8 mg/dL (8.4-10.6); Glucose* 85 mg/dL (60-115)
[2024-12-02 00:40] LABS: D Dimer Quantitative* 0.17 ug/ml (0.00-0.50)
== END 2024-12-02 01:11 | disposition home or self-care (01) ==
PROVIDERS: Emergency Provider Student in an Organized Health Care Education/Training Program; PCP Physician Assistant Medical
DX: H81.13 Benign paroxysmal vertigo, bilateral (principal); R07.9 Chest pain, unspecified
CPT/HCPCS: 36415; 71046; 80048; 84484; 85025; 85379; 93005; 99284; 99285; A9270